=== PATIENT | female | born 1980 | race Hispanic/Latino ===

== ENCOUNTER 2020-01-24 11:09 | Inpatient (IN) | payer OTHER ==
[~2020-01-24] VITALS: Ht 152.4 cm; Wt 60.0 kg
[2020-01-24] MEDS ORDERED: SODIUM CHLORIDE 0.9% 1000ML 1,000 ML IV STA ×3 (12:04→16:48)
[2020-01-24] MEDS ORDERED: ONDANSETRON HCL INJ 2MG/ML 2ML 2 MG/ML VIAL IV STA (12:04)
[2020-01-24] MEDS ORDERED: KETOROLAC TROMETHAMINE 30 MG/ML VIAL IV STA (12:04)
[2020-01-24 12:25] LABS: BASOPHILS # (AUTO) 0.1 (0.0-0.1); BASOPHILS % 0.6 % (0.0-1.0); EOSINOPHILS % 0.1 % (0.0-6.0); HEMOGLOBIN 13.8 g/dL (12.0-16.0); LYMPHOCYTES # (AUTO) 0.6 (1.0-3.2); LYMPHOCYTES % 6.1 % (18.0-39.1); MEAN CORPUSCULAR HEMOGLOBIN 29.2 pg (28-32); MEAN CORPUSCULAR HGB CONC 33.7 g/dL (31-35); MEAN CORPUSCULAR VOLUME 86.9 fL (81-99); MONOCYTES # (AUTO) 0.6 (0.2-0.8); MONOCYTES % 5.9 % (4.4-11.3); NEUTROPHILS # (AUTO) 8.8 (2.1-6.9); NEUTROPHILS % 86.9 % (38.7-80.0); PLATELET COUNT 279 x10e3/uL (140-360); RED BLOOD COUNT 4.72 x10e6/uL (3.6-5.1); RED CELL DISTRIBUTION WIDTH 13.1 % (11.7-14.4)
[2020-01-24 12:49] LABS: ALANINE AMINOTRANSFERASE 24 IU/L (0-55); ALBUMIN 4.2 g/dL (3.5-5.0); ALKALINE PHOSPHATASE 123 IU/L (40-150); ANION GAP 15.8 mmol/L (8-16); BLOOD UREA NITROGEN 8 mg/dL (7-26); BUN/CREATININE RATIO 10 (6-25); CALCIUM 9.6 mg/dL (8.4-10.2); CARBON DIOXIDE 25 mmol/L (22-29); CHLORIDE 101 mmol/L (98-107); CREATININE, SERUM 0.79 mg/dL (0.57-1.11); EST GLOMERULAR FILTRATION RATE > 60 ML/MIN (60-); GLUCOSE 293 mg/dL (74-118); LIPASE 21 U/L (8-78); POTASSIUM 3.8 mmol/L (3.5-5.1); SODIUM 138 mmol/L (136-145)
[2020-01-24 14:12] LABS: COLOR,URINE YELLOW (YELLOW)
[2020-01-24 14:13] LABS: CLARITY,URINE SL CLOUDY (CLEAR); KETONES,URINE 1+ (NEGATIVE); LEUKOCYTE ESTERASE ,URINE NEGATIVE (NEGATIVE); NITRITE,URINE POSITIVE (NEGATIVE); PROTEIN,URINE DIPSTICK NEGATIVE (NEGATIVE); URINE UROBILINOGEN 0.2 mg/dL (0.2 - 1)
[2020-01-24 14:14] LABS: BILIRUBIN,URINE NEGATIVE (NEGATIVE); PREGNANCY TEST, URINE NEGATIVE (NEGATIVE)
[2020-01-24 14:36] LABS: BACTERIA,URINE MANY /HPF; EPITHELIAL CELLS,URINE FEW /LPF
[2020-01-24] MEDS ORDERED: ACETAMINOPHEN 325 MG TAB PO ONE ×2 (17:00)
[2020-01-24] MEDS ORDERED: GADOBENATE DIMEGLUMINE 1 ML IV ONE (17:01)
[2020-01-24] MEDS ORDERED: SODIUM CHLORIDE 0.9% 100 ML ONE (17:02)
[2020-01-24] MEDS: PIPER-TAZ 3.375 GM 50 ML IV SCH (17:08)
[2020-01-24] MEDS ORDERED: IBUPROFEN 800MG/ 200ML 200 ML IV ONE (17:30)
[2020-01-24] MEDS ORDERED: IOPAMIDOL 370 MG/ML 200 ML INFUS..BTL INJ ONE (17:52)
[2020-01-24] MEDS ORDERED: SODIUM CHLORIDE 0.9% 50ML 50 ML ONE (17:52)
[2020-01-24 21:40] VITALS: BP 116/64
[2020-01-24 21:48] VITALS: BP 116/64
[2020-01-24] MEDS: SODIUM CHLORIDE 0.9% 1000ML 1,000 ML IV SCH (22:28)
[2020-01-24 22:30] VITALS: BP 116/64
[2020-01-24] MEDS: ONDANSETRON HCL INJ 2MG/ML 2ML 2 MG/ML VIAL IV PRN (23:57)
[2020-01-25] VITALS (9 sets, daily range): BP systolic 123–150; BP diastolic 60–96
[2020-01-25] MEDS: PIPER-TAZ 3.375 GM 50 ML IV SCH ×2 (00:50→06:19)
[2020-01-25] MEDS: SODIUM CHLORIDE 0.9% 1000ML 1,000 ML IV SCH ×2 (01:01→08:31)
[2020-01-25] MEDS: ONDANSETRON HCL INJ 2MG/ML 2ML 2 MG/ML VIAL IV PRN (03:40)
[2020-01-25] MEDS: MORPHINE SULFATE INJ 4 MG/ML INJ 1ML IV PRN (03:40)
[2020-01-25] MEDS: PROMETHAZINE 12.5MG/ NACL 0.9% 12.5 MG/50 ML BAG IV PRN (05:49)
[2020-01-25] MEDS: ACETAMINOPHEN 325 MG TAB PO PRN ×2 (06:19→11:36)
[2020-01-25 06:24] LABS: BASOPHILS % 0.5 % (0.0-1.0); EOSINOPHILS # (AUTO) 0.1 (0.0-0.4); EOSINOPHILS % 1.1 % (0.0-6.0); HEMATOCRIT 32.8 % (34.2-44.1); HEMOGLOBIN 10.9 g/dL (12.0-16.0); LYMPHOCYTES # (AUTO) 0.3 (1.0-3.2); LYMPHOCYTES % 3.7 % (18.0-39.1); MEAN CORPUSCULAR HEMOGLOBIN 29.4 pg (28-32); MEAN CORPUSCULAR HGB CONC 33.2 g/dL (31-35); MEAN CORPUSCULAR VOLUME 88.4 fL (81-99); MONOCYTES # (AUTO) 0.5 (0.2-0.8); MONOCYTES % 6.1 % (4.4-11.3); NEUTROPHILS # (AUTO) 6.9 (2.1-6.9); NEUTROPHILS % 88.2 % (38.7-80.0); PLATELET COUNT 182 x10e3/uL (140-360); RED BLOOD COUNT 3.71 x10e6/uL (3.6-5.1); RED CELL DISTRIBUTION WIDTH 13.2 % (11.7-14.4)
[2020-01-25 06:49] LABS: ALANINE AMINOTRANSFERASE 23 IU/L (0-55); ALBUMIN 2.9 g/dL (3.5-5.0); ALBUMIN/GLOBULIN RATIO 0.9 (0.8-2.0); ALKALINE PHOSPHATASE 81 IU/L (40-150); ANION GAP 13.2 mmol/L (8-16); BLOOD UREA NITROGEN 5 mg/dL (7-26); BUN/CREATININE RATIO 8 (6-25); CALCIUM 7.5 mg/dL (8.4-10.2); CARBON DIOXIDE 20 mmol/L (22-29); CHLORIDE 107 mmol/L (98-107); CREATININE, SERUM 0.61 mg/dL (0.57-1.11); EST GLOMERULAR FILTRATION RATE > 60 ML/MIN (60-); GLUCOSE 221 mg/dL (74-118); POTASSIUM 3.2 mmol/L (3.5-5.1); SODIUM 137 mmol/L (136-145)
[2020-01-25 08:22] LABS: LYMPHOCYTES % (MANUAL) 9 % (19-48); MONOCYTES % (MANUAL) 2 % (3.4-9.0); NEUTROPHILS % (MANUAL) 89 % (40-74); PLATELET ESTIMATE ADEQUATE; PLATELET MORPHOLOGY COMMENT NORMAL; RBC MORPHOLOGY COMMENT NORMAL
[2020-01-25] MEDS: INSULIN LISPRO 100 UNIT/1 ML 3ML VIAL SQ SCH ×3 (11:30→21:15)
[2020-01-25] MEDS ORDERED: POTASSIUM CHLORIDE 20 MEQ TAB CR PO ONE ×2 (11:50→16:15)
[2020-01-25] MEDS: CEFEPIME 1GM/NS 0.9% 50 ML 50 ML IV SCH ×2 (14:04→23:12)
[2020-01-25] MEDS: LACTATED RINGER'S 1,000 ML INJ SCH ×2 (14:04→21:16)
[2020-01-25] MEDS: ACETAMINOPHEN/CODEINE 300MG - 30MG TAB PO PRN ×2 (16:27→21:15)
[2020-01-26] VITALS (8 sets, daily range): BP systolic 138–159; BP diastolic 67–86
[2020-01-26] MEDS: ACETAMINOPHEN 325 MG TAB PO PRN ×3 (00:28→20:19)
[2020-01-26] MEDS: ACETAMINOPHEN/CODEINE 300MG - 30MG TAB PO PRN ×3 (04:12→17:25)
[2020-01-26] MEDS: LACTATED RINGER'S 1,000 ML INJ SCH ×2 (04:16→17:23)
[2020-01-26] MEDS: PROMETHAZINE 12.5MG/ NACL 0.9% 12.5 MG/50 ML BAG IV PRN (04:52)
[2020-01-26 06:38] LABS: BASOPHILS % 0.9 % (0.0-1.0); EOSINOPHILS % 0.7 % (0.0-6.0); HEMATOCRIT 32.9 % (34.2-44.1); LYMPHOCYTES # (AUTO) 0.7 (1.0-3.2); LYMPHOCYTES % 15.2 % (18.0-39.1); MEAN CORPUSCULAR HEMOGLOBIN 29.6 pg (28-32); MEAN CORPUSCULAR HGB CONC 33.4 g/dL (31-35); MEAN CORPUSCULAR VOLUME 88.4 fL (81-99); MONOCYTES # (AUTO) 0.4 (0.2-0.8); MONOCYTES % 8.5 % (4.4-11.3); NEUTROPHILS # (AUTO) 3.3 (2.1-6.9); NEUTROPHILS % 74.3 % (38.7-80.0); PLATELET COUNT 178 x10e3/uL (140-360); RED BLOOD COUNT 3.72 x10e6/uL (3.6-5.1); RED CELL DISTRIBUTION WIDTH 13.2 % (11.7-14.4)
[2020-01-26 06:46] LABS: INR 0.96; PROTHROMBIN TIME 13.3 seconds (11.9-14.5)
[2020-01-26 06:47] LABS: PARTIAL THROMBOPLASTIN TIME 34.9 seconds (23.8-35.5)
[2020-01-26 06:56] LABS: % IRON SATURATION 6 % (15-50); ANION GAP 13.6 mmol/L (8-16); BLOOD UREA NITROGEN 5 mg/dL (7-26); BUN/CREATININE RATIO 8 (6-25); CALCIUM 8.2 mg/dL (8.4-10.2); CARBON DIOXIDE 24 mmol/L (22-29); CHLORIDE 104 mmol/L (98-107); CREATININE, SERUM 0.64 mg/dL (0.57-1.11); EST GLOMERULAR FILTRATION RATE > 60 ML/MIN (60-); GLUCOSE 192 mg/dL (74-118); IRON 14 ug/dL (50-170); MAGNESIUM 1.8 MG/DL (1.3-2.1); POTASSIUM 3.6 mmol/L (3.5-5.1); SODIUM 138 mmol/L (136-145); TOTAL IRON BINDING CAPACITY 238 ug/dL (261-478); TRANSFERRIN 170 mg/dL (180-382)
[2020-01-26] MEDS: INSULIN LISPRO 100 UNIT/1 ML 3ML VIAL SQ SCH ×4 (08:40→20:10)
[2020-01-26] MEDS: CEFEPIME 1GM/NS 0.9% 50 ML 50 ML IV SCH (11:46)
[2020-01-26] MEDS: IRON SUCROSE 100 MG in SODIUM CHLORIDE 0.9% 100 ML 100 ML IV SCH (20:09)
[2020-01-26] MEDS: MORPHINE SULFATE INJ 4 MG/ML INJ 1ML IV PRN (20:20)
[2020-01-27] VITALS (8 sets, daily range): BP systolic 116–152; BP diastolic 74–84
[2020-01-27] MEDS: CEFEPIME 1GM/NS 0.9% 50 ML 50 ML IV SCH ×2 (00:02→12:31)
[2020-01-27] MEDS: LACTATED RINGER'S 1,000 ML INJ SCH ×2 (03:27→10:40)
[2020-01-27] MEDS: MORPHINE SULFATE INJ 4 MG/ML INJ 1ML IV PRN (06:33)
[2020-01-27] MEDS: CLONIDINE HCL 0.1 MG TAB PO PRN (08:41)
[2020-01-27] MEDS: INSULIN LISPRO 100 UNIT/1 ML 3ML VIAL SQ SCH ×4 (08:43→21:00)
[2020-01-27] MEDS: ACETAMINOPHEN/CODEINE 300MG - 30MG TAB PO PRN (10:25)
[2020-01-27] MEDS ORDERED: METFORMIN HCL500 MG PO (14:58)
[2020-01-27] MEDS ORDERED: LOSARTAN POTAS100 MG PO (14:58)
[2020-01-27] MEDS ORDERED: BISACODYL 5 MG TAB EC PO PRN (15:00)
[2020-01-27] MEDS ORDERED: PRAVACHOL20 MG PO (15:01)
[2020-01-27] MEDS ORDERED: PIOGLITAZONE HC45 MG PO (15:01)
[2020-01-27] MEDS: GLIPIZIDE 5 MG TAB PO SCH (17:12)
[2020-01-27] MEDS: IRON SUCROSE 100 MG in SODIUM CHLORIDE 0.9% 100 ML 100 ML IV SCH (20:00)
[2020-01-27] MEDS: PRAVASTATIN 20 MG TAB PO SCH (21:00)
[2020-01-28] VITALS (8 sets, daily range): BP systolic 113–165; BP diastolic 65–85
[2020-01-28] MEDS: ONDANSETRON HCL INJ 2MG/ML 2ML 2 MG/ML VIAL IV PRN ×2 (02:33→08:37)
[2020-01-28] MEDS: LACTATED RINGER'S 1,000 ML INJ SCH ×3 (02:33→14:38)
[2020-01-28 06:09] LABS: BASOPHILS # (AUTO) 0.1 (0.0-0.1); BASOPHILS % 1.4 % (0.0-1.0); EOSINOPHILS # (AUTO) 0.1 (0.0-0.4); EOSINOPHILS % 1.9 % (0.0-6.0); HEMATOCRIT 32.7 % (34.2-44.1); HEMOGLOBIN 11.2 g/dL (12.0-16.0); LYMPHOCYTES # (AUTO) 1.5 (1.0-3.2); MEAN CORPUSCULAR HEMOGLOBIN 29.9 pg (28-32); MEAN CORPUSCULAR HGB CONC 34.3 g/dL (31-35); MEAN CORPUSCULAR VOLUME 87.2 fL (81-99); MONOCYTES # (AUTO) 0.5 (0.2-0.8); MONOCYTES % 11.4 % (4.4-11.3); NEUTROPHILS # (AUTO) 2.1 (2.1-6.9); NEUTROPHILS % 48.6 % (38.7-80.0); PLATELET COUNT 214 x10e3/uL (140-360); RED BLOOD COUNT 3.75 x10e6/uL (3.6-5.1); RED CELL DISTRIBUTION WIDTH 13.1 % (11.7-14.4)
[2020-01-28 07:04] LABS: ANION GAP 14.1 mmol/L (8-16); BLOOD UREA NITROGEN 5 mg/dL (7-26); BUN/CREATININE RATIO 9 (6-25); CALCIUM 8.7 mg/dL (8.4-10.2); CARBON DIOXIDE 23 mmol/L (22-29); CHLORIDE 105 mmol/L (98-107); CREATININE, SERUM 0.56 mg/dL (0.57-1.11); EST GLOMERULAR FILTRATION RATE > 60 ML/MIN (60-); GLUCOSE 172 mg/dL (74-118); POTASSIUM 3.1 mmol/L (3.5-5.1); SODIUM 139 mmol/L (136-145)
[2020-01-28] MEDS: INSULIN LISPRO 100 UNIT/1 ML 3ML VIAL SQ SCH ×4 (08:37→21:00)
[2020-01-28] MEDS: GLIPIZIDE 5 MG TAB PO SCH ×2 (08:38→17:38)
[2020-01-28] MEDS ORDERED: LOSARTAN POTASSIUM 25 MG TAB PO SCH (09:00)
[2020-01-28] MEDS ORDERED: POTASSIUM CHLORIDE 10MEQ EA PO ONE (11:45)
[2020-01-28] MEDS: CEFEPIME 1GM/NS 0.9% 50 ML 50 ML IV SCH ×2 (11:51)
[2020-01-28] MEDS: CLONIDINE HCL 0.1 MG TAB PO PRN (11:54)
[2020-01-28] MEDS: ACETAMINOPHEN/CODEINE 300MG - 30MG TAB PO PRN (17:38)
[2020-01-28] MEDS: IRON SUCROSE 100 MG in SODIUM CHLORIDE 0.9% 100 ML 100 ML IV SCH (20:00)
[2020-01-28] MEDS: PRAVASTATIN 20 MG TAB PO SCH (20:44)
[2020-01-29] VITALS (8 sets, daily range): BP systolic 120–166; BP diastolic 66–92
[2020-01-29] MEDS: CEFEPIME 1GM/NS 0.9% 50 ML 50 ML IV SCH ×2 (00:15→12:32)
[2020-01-29] MEDS: LACTATED RINGER'S 1,000 ML INJ SCH ×2 (04:20→14:15)
[2020-01-29] MEDS: ACETAMINOPHEN 325 MG TAB PO PRN (04:20)
[2020-01-29 06:37] LABS: BASOPHILS # (AUTO) 0.1 (0.0-0.1); EOSINOPHILS # (AUTO) 0.2 (0.0-0.4); EOSINOPHILS % 3.2 % (0.0-6.0); HEMATOCRIT 32.5 % (34.2-44.1); HEMOGLOBIN 10.6 g/dL (12.0-16.0); LYMPHOCYTES % 39.8 % (18.0-39.1); MEAN CORPUSCULAR HEMOGLOBIN 28.9 pg (28-32); MEAN CORPUSCULAR HGB CONC 32.6 g/dL (31-35); MEAN CORPUSCULAR VOLUME 88.6 fL (81-99); MONOCYTES # (AUTO) 0.5 (0.2-0.8); MONOCYTES % 9.1 % (4.4-11.3); NEUTROPHILS # (AUTO) 2.3 (2.1-6.9); NEUTROPHILS % 45.9 % (38.7-80.0); PLATELET COUNT 248 x10e3/uL (140-360); RED BLOOD COUNT 3.67 x10e6/uL (3.6-5.1); RED CELL DISTRIBUTION WIDTH 13.2 % (11.7-14.4)
[2020-01-29 07:03] LABS: ANION GAP 13.2 mmol/L (8-16); BLOOD UREA NITROGEN 6 mg/dL (7-26); BUN/CREATININE RATIO 10 (6-25); CALCIUM 8.7 mg/dL (8.4-10.2); CARBON DIOXIDE 26 mmol/L (22-29); CHLORIDE 104 mmol/L (98-107); EST GLOMERULAR FILTRATION RATE > 60 ML/MIN (60-); GLUCOSE 155 mg/dL (74-118); POTASSIUM 4.2 mmol/L (3.5-5.1); SODIUM 139 mmol/L (136-145)
[2020-01-29] MEDS: GLIPIZIDE 5 MG TAB PO SCH ×2 (08:16→17:35)
[2020-01-29] MEDS: INSULIN LISPRO 100 UNIT/1 ML 3ML VIAL SQ SCH ×4 (08:30→21:00)
[2020-01-29] MEDS ORDERED: LOSARTAN POTASSIUM 25 MG TAB PO SCH (09:00)
[2020-01-29] MEDS: PRAVASTATIN 20 MG TAB PO SCH (20:42)
[2020-01-30] VITALS (8 sets, daily range): BP systolic 145–163; BP diastolic 72–92
[2020-01-30] MEDS: INSULIN LISPRO 100 UNIT/1 ML 3ML VIAL SQ SCH ×4 (07:46→21:00)
[2020-01-30] MEDS: GLIPIZIDE 5 MG TAB PO SCH ×2 (08:33→16:46)
[2020-01-30] MEDS: LOSARTAN POTASSIUM 100 MG TAB PO SCH (08:33)
[2020-01-30] MEDS ORDERED: PEG (High)/E-LYTE SOLN 4,000 ML BTL PO ONE (09:00)
[2020-01-30] MEDS: LACTATED RINGER'S 1,000 ML INJ SCH (12:45)
[2020-01-30] MEDS: ONDANSETRON HCL INJ 2MG/ML 2ML 2 MG/ML VIAL IV PRN (13:16)
[2020-01-30] MEDS: CEFEPIME 1GM/NS 0.9% 50 ML 50 ML IV SCH ×3 (15:08→23:44)
[2020-01-30] MEDS: PRAVASTATIN 20 MG TAB PO SCH (21:00)
[2020-01-31] VITALS (8 sets, daily range): BP systolic 115–177; BP diastolic 75–86
[2020-01-31] MEDS: LACTATED RINGER'S 1,000 ML INJ SCH ×2 (01:39→23:00)
[2020-01-31 06:35] LABS: BASOPHILS # (AUTO) 0.1 (0.0-0.1); BASOPHILS % 0.7 % (0.0-1.0); EOSINOPHILS # (AUTO) 0.2 (0.0-0.4); EOSINOPHILS % 2.6 % (0.0-6.0); HEMATOCRIT 34.5 % (34.2-44.1); HEMOGLOBIN 11.4 g/dL (12.0-16.0); LYMPHOCYTES # (AUTO) 2.5 (1.0-3.2); MEAN CORPUSCULAR HEMOGLOBIN 28.9 pg (28-32); MEAN CORPUSCULAR VOLUME 87.6 fL (81-99); MONOCYTES # (AUTO) 0.6 (0.2-0.8); MONOCYTES % 8.2 % (4.4-11.3); NEUTROPHILS # (AUTO) 3.9 (2.1-6.9); NEUTROPHILS % 53.3 % (38.7-80.0); PLATELET COUNT 328 x10e3/uL (140-360); RED BLOOD COUNT 3.94 x10e6/uL (3.6-5.1); RED CELL DISTRIBUTION WIDTH 13.4 % (11.7-14.4)
[2020-01-31 06:36] LABS: ALANINE AMINOTRANSFERASE 163 IU/L (0-55); ALBUMIN 3.3 g/dL (3.5-5.0); ALBUMIN/GLOBULIN RATIO 0.9 (0.8-2.0); ALKALINE PHOSPHATASE 163 IU/L (40-150); BLOOD UREA NITROGEN 5 mg/dL (7-26); BUN/CREATININE RATIO 7 (6-25); CALCIUM 9.3 mg/dL (8.4-10.2); CARBON DIOXIDE 25 mmol/L (22-29); CHLORIDE 107 mmol/L (98-107); CREATININE, SERUM 0.68 mg/dL (0.57-1.11); EST GLOMERULAR FILTRATION RATE > 60 ML/MIN (60-); GLUCOSE 144 mg/dL (74-118); SODIUM 142 mmol/L (136-145)
[2020-01-31] MEDS: INSULIN LISPRO 100 UNIT/1 ML 3ML VIAL SQ SCH ×4 (07:30→21:00)
[2020-01-31] MEDS: ONDANSETRON HCL INJ 2MG/ML 2ML 2 MG/ML VIAL IV PRN ×2 (07:31→15:39)
[2020-01-31] MEDS ORDERED: HYDRALAZINE HCL 20 MG/ML VIAL IV PRN (07:45)
[2020-01-31] MEDS: GLIPIZIDE 5 MG TAB PO SCH ×2 (08:32→16:47)
[2020-01-31] MEDS ORDERED: IOPAMIDOL 300MG/ML 50ML INFUS..BTL IV ONE (10:22)
[2020-01-31] MEDS ORDERED: BUPIVACAINE 0.25% 30ML SDV INJ ONE (10:22)
[2020-01-31] MEDS: CEFEPIME 1GM/NS 0.9% 50 ML 50 ML IV SCH ×2 (11:16→23:30)
[2020-01-31] MEDS ORDERED: CEFAZOLIN SOD 2 GM/D5W 50ML 50 ML IV ONE (11:30)
[2020-01-31] MEDS ORDERED: CEFAZOLIN SOD 1 GM VIAL IV SCH (11:30)
[2020-01-31] MEDS ORDERED: SEVOFLURANE INHAL SOLN 250 ML PEN BTL ONE (12:07)
[2020-01-31] MEDS ORDERED: ROCURONIUM BROMIDE 10 MG/ML 5ML VIAL IV ONE (12:07)
[2020-01-31] MEDS ORDERED: KETOROLAC TROMETHAMINE 30 MG/ML VIAL ONE (12:07)
[2020-01-31] MEDS ORDERED: GLYCOPYRROLATE INJ 0.2 MG/ML VIAL ONE (12:07)
[2020-01-31] MEDS ORDERED: ONDANSETRON HCL INJ 2MG/ML 2ML 2 MG/ML VIAL ONE (12:07)
[2020-01-31] MEDS ORDERED: NEOSTIGMINE 1 MG/ML 10ML VIAL ONE (12:07)
[2020-01-31] MEDS ORDERED: DEXAMETHASONE SOD PHOS INJ 4 MG/ML VIAL ONE (12:07)
[2020-01-31] MEDS ORDERED: LIDOCAINE HCL 2% LOCAL INJ 5 ML SDV VIAL INJ ONE (12:07)
[2020-01-31] MEDS ORDERED: PROPOFOL IV EMULSION 10 MG/ML 20 ML VIAL ONE (12:07)
[2020-01-31] MEDS ORDERED: MIDAZOLAM HCL 2 MG/2 ML VIAL ONE (12:54)
[2020-01-31] MEDS ORDERED: FENTANYL CITRATE/PF 100MCG/2 ML INJ ONE ×2 (12:54→14:45)
[2020-01-31] MEDS ORDERED: ACETAMINOPHEN 1000 MG/100 ML 100 ML IV ONE (13:59)
[2020-01-31] MEDS ORDERED: INSULIN REGULAR, HUMAN 100 UNIT/1 ML 3ML VIAL ONE (14:54)
[2020-01-31] MEDS: MORPHINE SULFATE INJ 4 MG/ML INJ 1ML IV PRN (15:39)
[2020-01-31] MEDS: PROMETHAZINE 12.5MG/ NACL 0.9% 12.5 MG/50 ML BAG IV PRN (16:46)
[2020-01-31] MEDS: LOSARTAN POTASSIUM 100 MG TAB PO SCH (16:47)
[2020-01-31] MEDS ORDERED: MORPHINE SULFATE INJ 4 MG/ML INJ 1ML IV PRN (19:15)
[2020-01-31] MEDS: PRAVASTATIN 20 MG TAB PO SCH (21:00)
[2020-02-01 00:54] VITALS: BP 129/73
[2020-02-01 05:33] VITALS: BP 147/78
[2020-02-01] MEDS: PROMETHAZINE 12.5MG/ NACL 0.9% 12.5 MG/50 ML BAG IV PRN (06:48)
[2020-02-01 08:06] VITALS: BP 148/74
[2020-02-01] MEDS: INSULIN LISPRO 100 UNIT/1 ML 3ML VIAL SQ SCH ×2 (08:30→11:42)
[2020-02-01] MEDS: GLIPIZIDE 5 MG TAB PO SCH (08:58)
[2020-02-01] MEDS: LOSARTAN POTASSIUM 100 MG TAB PO SCH (08:58)
[2020-02-01 09:24] VITALS: BP 148/74
[2020-02-01 11:44] VITALS: BP 134/69
[2020-02-01] MEDS: CEFEPIME 1GM/NS 0.9% 50 ML 50 ML IV SCH (11:50)
[2020-02-01] MEDS ORDERED: LEVOFLOXACIN500 MG PO (12:33)
[2020-02-01] MEDS ORDERED: TYLENOL # 31 EA PO (12:34)
[2020-02-01 15:58] VITALS: BP 141/82
== END 2020-02-01 16:57 | disposition home or self-care (01) | DRG 854 ==
LOC: ER 12:00 → ERHOLD 17:12 → MED/SURG3 21:25
PROVIDERS: ADMIT Internal Medicine; ATTEND Internal Medicine
PROC: 0UT14ZZ Resection of Left Ovary, Percutaneous Endoscopic Approach (ICD-10-PCS; 2020-01-31)
PROC: BT141ZZ Fluoroscopy of Kidneys, Ureters and Bladder using Low Osmolar Contrast (ICD-10-PCS; principal; 2020-01-31 12:00)
PROC: 0UT64ZZ Resection of Left Fallopian Tube, Percutaneous Endoscopic Approach (ICD-10-PCS; 2020-01-31 12:00)
DX: A41.9 Sepsis, unspecified organism (principal); N10 Acute pyelonephritis; C56.2 Malignant neoplasm of left ovary; I10 Essential (primary) hypertension; R19.00 Intra-abdominal and pelvic swelling, mass and lump, unspecified site; E87.6 Hypokalemia; D64.9 Anemia, unspecified; E11.65 Type 2 diabetes mellitus with hyperglycemia; Z80.8 Family history of malignant neoplasm of other organs or systems; N39.46 Mixed incontinence; D50.9 Iron deficiency anemia, unspecified; B96.89 Other specified bacterial agents as the cause of diseases classified elsewhere; N81.10 Cystocele, unspecified; N36.41 Hypermobility of urethra; N83.202 Unspecified ovarian cyst, left side; K66.0 Peritoneal adhesions (postprocedural) (postinfection); N88.8 Other specified noninflammatory disorders of cervix uteri; N70.11 Chronic salpingitis; N83.8 Other noninflammatory disorders of ovary, fallopian tube and broad ligament
CPT/HCPCS: 36415; 72197; 74177; 74420; 76830; 76856; 80048; 80053; 81001; 81025; 82948; 83036; 83540; 83605; 83690; 83735; 84466; 84702; 85025; 85610; 85730; 86304; 87040; 87086; 87186; 88304; 88307; 93976; 96361; 99284; C1758; J0360; J0690; J0692; J1100; J1756; J1817; J1885; J2001; J2250; J2270; J2405; J2543; J2550; J2710; J3010; J7030; J7050; J7121; Q9967; U0002